=== PATIENT | female | born 1945 | race Caucasian/White ===

== ENCOUNTER 2016-12-24 06:37 | Day surgery (SDC) | payer MEDICARE, MEDICAID ==
[2016-12-24 07:10] VITALS: BMI 39.9
[2016-12-24 07:15] VITALS: TEMP 98.4
[2016-12-24] MEDS ORDERED: Propofol 10 mg/ml Inj (20 ML) ONE (08:03)
[2016-12-24] MEDS ORDERED: Lidocaine Hydrochloride 5 ML INJ ONE (08:05)
[2016-12-24] MEDS ORDERED: Lactated Ringer's 1,000 ML IV SCH (08:15)
--- NOTE | 2016-12-24 08:25 | CP.SDSHP ---
Same Day Surgery H & P - History Proposed Procedure: Colonoscopy Pre-Op Diagnosis: Screening, high risk - Previous Medical/Surgical History Cardiac: Hypertension Endocrine/Metabolic: Diabetes Previous Surgical History: cholecystectomy - Allergies Allergies: Allergies No Known Allergies Allergy (Verified 08/27/16 21:04) - Physical Exam General Appearance: wdwn nad Vital Signs: Vital Signs 12/24/16 12/24/16 12/24/16 07:09 07:59 08:15 Temperature 98.4 F 98.4 F 98.4 F Pulse Rate 74 74 74 Respiratory 19 19 19 Rate Blood Pressure 119/64 119/64 119/64 O2 Sat by Pulse 97 97 97 Oximetry Mental Status: Alert & Oriented x3 Heart: WNL Lungs: WNL GI: WNL - {Optional Preform as Required} Abdomen: WNL - Impression Impression: high risk screening colonoscopy Pt. Evaluated Today:Candidate for Anesthesia & Procedure: Yes - Date & Time Date: 12/24/16 Time: 08:25 Short Stay Discharge - Short Stay Discharge Admitting Diagnosis/Reason for Visit: SCREENING Disposition: HOME/ ROUTINE
[2016-12-24 09:12] VITALS: RESP 12
[2016-12-24 09:23] VITALS: BP 126/70; PULSE 81; O2SAT 100
== END 2016-12-24 09:44 | disposition home or self-care (01) ==
LOC: C.ENDO 06:37
PROVIDERS: ATTEND Internal Medicine Gastroenterology
DX: Z12.11 Encounter for screening for malignant neoplasm of colon (principal); Z80.0 Family history of malignant neoplasm of digestive organs
CPT/HCPCS: 45378; J2704; J3010; J7120

== ENCOUNTER → 2019-01-25 | Outpatient (CLI) | payer MEDICARE, MEDICAID | LOC: C.MAMMO 09:24 | DX: Z12.31 Encounter for screening mammogram for malignant neoplasm of breast (principal) ==